=== PATIENT | female | born 1955 | race Caucasian/White ===

== ENCOUNTER → 2016-07-26 | Outpatient (CLI) | payer MEDICARE ==
[~2016-07-26] MED LIST: CEFDINIR300 MG PO; CELLCEPT200 MG/1 M PO; CITALOPRAM HBR20 MG PO; IBUPROFEN600 MG PO; IMMUNOGLOBULIN; IPRATROPIUM; IRON325 M1 PO; MESTINON TAB 6060 MG PO; NEURONTIN 300300 MG PO; PREDNISONE20 MG PO; PROTONIX 40 MG40 M1 PO; SINGULAIR10 MG PO; TOPROL XL 25 MG25 MG PO; VITAMIN D250000 UNIT PO; ZOFRAN4 MG PO
== END ==
LOC: MAMO 07-25 14:40
DX: Z12.31 Encounter for screening mammogram for malignant neoplasm of breast (principal); Z90.710 Acquired absence of both cervix and uterus
CPT/HCPCS: G0202

== ENCOUNTER → 2016-08-16 | Outpatient (CLI) | payer MEDICARE ==
[2016-08-16 09:35] LABS: HEMOGLOBIN 11.7 gm/dl (12.3-15.3); RED BLOOD COUNT 4.1 M/UL (4.00-5.10)
[2016-08-16 09:52] LABS: BUN/CREATININE RATIO 30 (0-10)
== END ==
LOC: OPSV 07:59 → CT 07:59
PROVIDERS: Nurse Practitioner Family
DX: Z45.89 Encounter for adjustment and management of other implanted devices (principal); M25.50 Pain in unspecified joint; D64.9 Anemia, unspecified; I10 Essential (primary) hypertension; K21.9 Gastro-esophageal reflux disease without esophagitis; F32.9 Major depressive disorder, single episode, unspecified; E11.9 Type 2 diabetes mellitus without complications; E78.5 Hyperlipidemia, unspecified; M25.774 Osteophyte, right foot; M67.471 Ganglion, right ankle and foot; S92.344D Nondisplaced fracture of fourth metatarsal bone, right foot, subsequent encounter for fracture with routine healing; Z86.19 Personal history of other infectious and parasitic diseases; R53.83 Other fatigue; E55.9 Vitamin D deficiency, unspecified; R25.2 Cramp and spasm
CPT/HCPCS: 36591; 73700; 80053; 80061; 80076; 82248; 83735; 84439; 84443; 84550; 84630; 85025; 87521; J1642

== ENCOUNTER → 2016-09-08 | Outpatient (CLI) | payer MEDICARE | LOC: EXRD 11:20 | DX: R06.00 Dyspnea, unspecified (principal); R09.89 Other specified symptoms and signs involving the circulatory and respiratory systems; J98.4 Other disorders of lung | CPT/HCPCS: 71020 ==

== ENCOUNTER → 2016-09-12 | Outpatient (CLI) | payer MEDICARE, OTHER | LOC: OPSV 11:11 → LAB 11:11 | DX: M13.0 Polyarthritis, unspecified (principal); G47.00 Insomnia, unspecified | CPT/HCPCS: 36591; 82550; 84550; 86039; 86140; 86431; J1642 ==

== ENCOUNTER → 2016-09-18 | Outpatient (CLI) | payer MEDICARE, OTHER | LOC: KOH-I 11:47 | DX: M79.603 Pain in arm, unspecified (principal); F17.210 Nicotine dependence, cigarettes, uncomplicated | CPT/HCPCS: 73200 ==

== ENCOUNTER 2016-10-22 14:44 | Inpatient (IN) | payer MEDICARE, OTHER ==
[~2016-10-22] VITALS: Ht 167.6 cm; Wt 71.2 kg
[2016-10-22 16:14] LABS: HEMOGLOBIN 13.1 gm/dl (12.3-15.3); RED BLOOD COUNT 4.53 M/UL (4.00-5.10); WHITE BLOOD COUNT 14.2 K/UL (4.5-11.0)
[2016-10-22] MEDS ORDERED: CITALOPRAM HBR20 MG PO (19:41)
[2016-10-22] MEDS ORDERED: VITAMIN D250000 UNIT PO (19:43)
[2016-10-22] MEDS ORDERED: IRON325 M1 PO (19:44)
[2016-10-22] MEDS ORDERED: IBUPROFEN600 MG PO (19:45)
[2016-10-22] MEDS ORDERED: NEURONTIN 300300 MG PO (19:45)
[2016-10-22] MEDS ORDERED: IMMUNOGLOBULIN (19:47)
[2016-10-22] MEDS ORDERED: IPRATROPIUM (19:48)
[2016-10-22] MEDS ORDERED: TOPROL XL 25 MG25 MG PO (19:49)
[2016-10-22] MEDS ORDERED: ZOFRAN4 MG PO (19:50)
[2016-10-22] MEDS ORDERED: CELLCEPT200 MG/1 M PO (19:50)
[2016-10-22] MEDS ORDERED: PREDNISONE20 MG PO (19:51)
[2016-10-22] MEDS ORDERED: PROTONIX 40 MG40 M1 PO (19:51)
[2016-10-22] MEDS ORDERED: MESTINON TAB 6060 MG PO (19:52)
[2016-10-23 03:27] LABS: RED BLOOD COUNT 3.74 M/UL (4.00-5.10)
[2016-10-23 03:28] LABS: HEMOGLOBIN 10.8 gm/dl (12.3-15.3)
[2016-10-23 03:36] LABS: BUN/CREATININE RATIO 30 (0-10)
[2016-10-24 03:18] LABS: RED BLOOD COUNT 3.44 M/UL (4.00-5.10)
[2016-10-24 03:53] LABS: BUN/CREATININE RATIO 15 (0-10)
[2016-10-24] MEDS ORDERED: SINGULAIR10 MG PO (12:16)
[2016-10-24] MEDS ORDERED: CEFDINIR300 MG PO (12:28)
== END 2016-10-24 15:10 | disposition home or self-care (01) | DRG 871 ==
LOC: ER1 14:44 → ZEROF 19:31 → CCU 19:31
PROVIDERS: Emergency Medicine; ADMIT Internal Medicine
DX: A41.9 Sepsis, unspecified organism (principal); J18.9 Pneumonia, unspecified organism; N17.9 Acute kidney failure, unspecified; E87.2 Acidosis; G89.29 Other chronic pain; E11.51 Type 2 diabetes mellitus with diabetic peripheral angiopathy without gangrene; E86.9 Volume depletion, unspecified; K76.0 Fatty (change of) liver, not elsewhere classified; B19.20 Unspecified viral hepatitis C without hepatic coma; D69.6 Thrombocytopenia, unspecified; M19.90 Unspecified osteoarthritis, unspecified site; Z72.0 Tobacco use; G70.00 Myasthenia gravis without (acute) exacerbation; D64.9 Anemia, unspecified; R10.9 Unspecified abdominal pain; E83.42 Hypomagnesemia; Z88.1 Allergy status to other antibiotic agents; Z88.2 Allergy status to sulfonamides; Z79.52 Long term (current) use of systemic steroids; Z95.0 Presence of cardiac pacemaker; E87.6 Hypokalemia; Y95 Nosocomial condition; Z79.899 Other long term (current) drug therapy
CPT/HCPCS: 36415; 36600; 71010; 71020; 80053; 80307; 81001; 82009; 82150; 82550; 82553; 82803; 82962; 83036; 83605; 83690; 83735; 84132; 84439; 84443; 84484; 85025; 85610; 87040; 87086; 93005; 93925; 94640; 94664; 96365; 96375; 99285; C9113; J1335; J1720; J2270; J2405; J2543; J3370; J7030; J7040; J7050

== ENCOUNTER → 2017-01-26 | Outpatient (CLI) | payer MEDICARE ==
[2017-01-26 09:58] LABS: HEMOGLOBIN 13.1 gm/dl (12.3-15.3); RED BLOOD COUNT 4.6 M/UL (4.00-5.10); WHITE BLOOD COUNT 8.5 K/UL (4.5-11.0)
[2017-01-26 10:26] LABS: BUN/CREATININE RATIO 34 (0-10)
== END ==
LOC: LAB 08:52
PROVIDERS: Nurse Practitioner Family
DX: E78.5 Hyperlipidemia, unspecified (principal); I10 Essential (primary) hypertension; E11.9 Type 2 diabetes mellitus without complications; D64.9 Anemia, unspecified; E55.9 Vitamin D deficiency, unspecified; R10.84 Generalized abdominal pain; R25.2 Cramp and spasm; K21.9 Gastro-esophageal reflux disease without esophagitis; M25.50 Pain in unspecified joint; R30.0 Dysuria; F32.9 Major depressive disorder, single episode, unspecified
CPT/HCPCS: 36415; 80053; 80061; 82043; 82570; 82607; 82728; 83036; 83735; 84439; 84443; 84550; 85025

== ENCOUNTER → 2020-05-31 | Outpatient (CLI) | payer MEDICARE, SELFPAY ==
[~2020-05-31] MED LIST changes: +ACID REDUCER 1150 MG PO; +ACYCLOVIR400 MG PO; +ALBUTEROL1.25 MG/3 INH; +ALBUTEROL2.5 MG/3 M INH; +ALDACTONE25 MG PO; +AZELASTINE SPRAY; +AZITHROMYCIN250 MG PO; +BACTROBAN OINT22 GM TOP; +BIOTIN2500 MCG PO; -CELLCEPT200 MG/1 M PO; +CELLCEPT250 MG PO; -CITALOPRAM HBR20 MG PO; +CITALOPRAM HBR40 MG PO; +CLARITIN10 MG PO; +CLOTRIMAZOLE-745 GM TOP; +COREG 3.125M3.125 MG PO; +DECADRON6 MG PO; +DICLOFENAC SOD100 GM TOP; +DIFLUCAN200 MG PO; +DOXYCYCLINE MO100 MG PO; +ECOTRIN81 MG PO; +ELIQUIS2.5 MG PO; +ELIQUIS5 MG PO; +FEOSOL325 MG PO; +FERROUS GLUCON324 M1 PO; +FLONASE 0.05% N16 GM; +FLUTICASONE SPRAY; +GAMUNEX-C20 GM/200 INJ; +GAMUNEX-C20 GM/200 IV; +GLUCOPHAGE500 MG PO; +HYDROCODON-ACE1 EAC2 PO; +IBU600 MG PO; +IPRATROPIUM BRO15 ML; -IRON325 M1 PO; +K-DUR TAB 20 M20 MEQ PO; +LASIX40 MG PO; +LEVAQUIN500 MG PO; +LORTAB 7.5-3251 EACH PO; +MESTINON60 MG PO; +MOVANTIK25 MG PO; +MUCINEX DM ER1 EAC1 PO; +MUCINEX600 MG PO; +NEURONTIN100 MG PO; +NITROGLYCERIN0.4 MG SL; +NORCO 7.5-3251 EACH PO; +OMNICEF 300 MG300 MG PO; +ONDANSETRON ODT4 MG SL; +PEPCID40 MG PO; +PERCOCET 10-321 EACH PO; +PERCOCET 5/325 T1 EA PO; +PLAVIX 75 MG TA75 MG PO; +PREDNISONE10 MG PO; +PROAIR HFA8.5 GM INH; +RESTASIS 0.05%1 EACH EYEBOTH; +TOPIRAMATE25 MG PO; +TYLENOL 325MG325 MG PO; +TYLENOL 500 MG500 MG PO; +VITAMIN B12 1000MCG SL; +VITAMIN B12-FO1 EACH PO; +VITAMIN D21250 MCG PO; +VITAMIN D35000 UNI1 PO; +VOLTAREN100 GM TOP; +XYZAL5 MG PO; +ZINC SULFATE220 M1 PO; +ZOFRAN ODT 4 MG4 MG PO; +ZOVIRAX 200 MG200 MG PO
== END ==
LOC: KOH-I 10:20
DX: Z12.2 Encounter for screening for malignant neoplasm of respiratory organs (principal); F17.210 Nicotine dependence, cigarettes, uncomplicated; R10.9 Unspecified abdominal pain; G89.29 Other chronic pain; M51.16 Intervertebral disc disorders with radiculopathy, lumbar region; R26.81 Unsteadiness on feet
CPT/HCPCS: 71271; 72131

== ENCOUNTER → 2020-06-08 | Outpatient (CLI) | payer MEDICARE, OTHER | LOC: MAMO 11:00 | DX: Z12.31 Encounter for screening mammogram for malignant neoplasm of breast (principal) | CPT/HCPCS: 77063; 77067 ==

== ENCOUNTER → 2020-07-29 | Outpatient (CLI) | payer MEDICARE, SELFPAY | LOC: EXRD 10:55 | DX: R10.32 Left lower quadrant pain (principal) | CPT/HCPCS: 73502 ==

== ENCOUNTER → 2020-09-21 | Outpatient (CLI) | payer MEDICARE, SELFPAY ==
[2020-09-21 11:30] LABS: HEMOGLOBIN 13.4 gm/dl (12.3-15.3); RED BLOOD COUNT 4.44 M/UL (4.00-5.10); WHITE BLOOD COUNT 5.6 K/UL (4.5-11.0)
[2020-09-21 11:49] LABS: BUN/CREATININE RATIO 20 (0-10)
== END ==
LOC: OPSV2 09-17 10:30
PROVIDERS: Anesthesiology
DX: Z01.818 Encounter for other preprocedural examination (principal); K40.90 Unilateral inguinal hernia, without obstruction or gangrene, not specified as recurrent
CPT/HCPCS: 36415; 80048; 85025; 93005

== ENCOUNTER → 2020-09-23 | Day surgery (SDC) | payer MEDICARE, SELFPAY | END | disposition home or self-care (01) | LOC: OR 06:51 | DX: K40.90 Unilateral inguinal hernia, without obstruction or gangrene, not specified as recurrent (principal); I25.119 Atherosclerotic heart disease of native coronary artery with unspecified angina pectoris; I11.0 Hypertensive heart disease with heart failure; I50.9 Heart failure, unspecified; I48.91 Unspecified atrial fibrillation; E78.5 Hyperlipidemia, unspecified; I82.409 Acute embolism and thrombosis of unspecified deep veins of unspecified lower extremity; D64.9 Anemia, unspecified; I25.2 Old myocardial infarction; E11.65 Type 2 diabetes mellitus with hyperglycemia; K21.9 Gastro-esophageal reflux disease without esophagitis; Z88.2 Allergy status to sulfonamides; Z88.1 Allergy status to other antibiotic agents; Z79.82 Long term (current) use of aspirin; Z82.49 Family history of ischemic heart disease and other diseases of the circulatory system; Z83.3 Family history of diabetes mellitus; Z95.1 Presence of aortocoronary bypass graft; Z79.4 Long term (current) use of insulin | CPT/HCPCS: C1781; J0690; J1100; J2001; J2370; J2405; J2704; J3010; J3370; J7030; J7120 ==

== ENCOUNTER → 2020-11-12 | Outpatient (CLI) | payer MEDICARE, OTHER | LOC: CT 10-26 14:00 | DX: H54.7 Unspecified visual loss (principal); H49.20 Sixth [abducent] nerve palsy, unspecified eye | CPT/HCPCS: 36415; 70470; 70482; 82565; Q9967 ==

== ENCOUNTER → 2021-03-01 | Outpatient (CLI) | payer MEDICARE | LOC: LAB 15:52 | DX: M51.36 Other intervertebral disc degeneration, lumbar region (principal) | CPT/HCPCS: 36415 ==

== ENCOUNTER → 2021-06-29 | Outpatient (CLI) | payer MEDICARE, OTHER ==
[2021-06-29 10:26] LABS: HEMOGLOBIN 12.4 gm/dl (12.3-15.3); RED BLOOD COUNT 4.2 M/UL (4.00-5.10); WHITE BLOOD COUNT 3.6 K/UL (4.5-11.0)
[2021-06-30 08:15] LABS: ESTIM. AVG GLU (EAG) 123 mg/dL (.); HEMOGLOBIN A1C 5.9 % (4.8-5.6)
[2021-06-30 09:15] LABS: A/G RATIO 1.9 (1.2-2.2); ALKALINE PHOSPHATASE, S 60 IU/L (44-121); ALT (SGPT) 16 IU/L (0-32); AST (SGOT) 25 IU/L (0-40); BILIRUBIN, TOTAL 0.4 mg/dL (0.0-1.2); BUN 14 mg/dL (8-27); BUN/CREATININE RATIO 20 (12-28); CALCIUM, SERUM 9.5 mg/dL (8.7-10.3); CARBON DIOXIDE, TOTAL 24 mmol/L (20-29); CHLORIDE, SERUM 99 mmol/L (96-106); CHOLESTEROL, TOTAL 155 mg/dL (100-199); CREATININE, SERUM 0.69 mg/dL (0.57-1.00); EGFR IF AFRICN AM 106 (>59); EGFR IF NONAFRICN AM 92 (>59); GLOBULIN, TOTAL 2.6 g/dL (1.5-4.5); GLUCOSE, SERUM 95 mg/dL (65-99); HDL CHOLESTEROL 46 mg/dL (>39); LDL CHOLESTEROL CALC 85 mg/dL (0-99); LDL/HDL RATIO 1.8 ratio (0.0-3.2); POTASSIUM, SERUM 4.1 mmol/L (3.5-5.2); PROTEIN, TOTAL, SERUM 7.5 g/dL (6.0-8.5); SODIUM, SERUM 141 mmol/L (134-144); T. CHOL/HDL RATIO 3.4 ratio (0.0-4.4); TRIGLYCERIDES 139 mg/dL (0-149)
[2021-06-30 11:15] LABS: CREATININE, URINE 54.3 mg/dL (Not Estab.); MICROALB/CREAT RATIO <6 (0-29)
[2021-07-01 05:10] LABS: VITAMIN D, 25-HYDROXY 68.2 ng/mL (30.0-100.0)
== END ==
LOC: MAMO 06-17 09:00
PROVIDERS: Nurse Practitioner Family
DX: Z12.31 Encounter for screening mammogram for malignant neoplasm of breast (principal); Z01.84 Encounter for antibody response examination; R93.89 Abnormal findings on diagnostic imaging of other specified body structures; R39.11 Hesitancy of micturition; E11.9 Type 2 diabetes mellitus without complications; R10.84 Generalized abdominal pain; I71.4 Abdominal aortic aneurysm, without rupture; M25.50 Pain in unspecified joint; I10 Essential (primary) hypertension; I70.209 Unspecified atherosclerosis of native arteries of extremities, unspecified extremity; D64.9 Anemia, unspecified; R20.2 Paresthesia of skin; R26.81 Unsteadiness on feet; E55.9 Vitamin D deficiency, unspecified; Z20.822 Contact with and (suspected) exposure to COVID-19
CPT/HCPCS: 36415; 77063; 77067; 80053; 80061; 81001; 82043; 82570; 82607; 83036; 84439; 84443; 85025

== ENCOUNTER → 2021-07-22 | Outpatient (CLI) | payer MEDICARE | LOC: KOH-I 07-12 14:30 | DX: F17.210 Nicotine dependence, cigarettes, uncomplicated (principal) | CPT/HCPCS: 71271 ==

== ENCOUNTER → 2021-08-04 | Outpatient (CLI) | payer MEDICARE | LOC: RAD 12:02 | DX: R31.9 Hematuria, unspecified (principal) | CPT/HCPCS: 74018 ==

== ENCOUNTER → 2021-09-08 | Outpatient (CLI) | payer MEDICARE | LOC: HEART 5 13:29 | DX: I25.10 Atherosclerotic heart disease of native coronary artery without angina pectoris (principal); R11.10 Vomiting, unspecified; I07.1 Rheumatic tricuspid insufficiency; Z95.0 Presence of cardiac pacemaker | CPT/HCPCS: 93306 ==

== ENCOUNTER → 2021-09-26 | Outpatient (CLI) | payer MEDICARE | LOC: RAD 08-09 08:30 | DX: M25.552 Pain in left hip (principal); R10.84 Generalized abdominal pain; R13.10 Dysphagia, unspecified; K44.9 Diaphragmatic hernia without obstruction or gangrene | CPT/HCPCS: 73502; 74221 ==

== ENCOUNTER → 2021-09-28 | Outpatient (CLI) | payer MEDICARE ==
[~2021-09-28] VITALS: Ht 160 cm; Wt 66.7 kg
== END ==
LOC: OPSV 10:00
DX: G70.00 Myasthenia gravis without (acute) exacerbation (principal)
CPT/HCPCS: 96365; C9399; J1200; J1642

== ENCOUNTER → 2021-10-05 | Outpatient (CLI) | payer MEDICARE ==
[~2021-10-05] VITALS: Ht 160 cm; Wt 66.7 kg
== END ==
LOC: OPSV 09:55
DX: Z45.2 Encounter for adjustment and management of vascular access device (principal); G70.00 Myasthenia gravis without (acute) exacerbation
CPT/HCPCS: 96523; C9399; J1642

== ENCOUNTER → 2021-10-06 | Outpatient (CLI) | payer MEDICARE ==
[~2021-10-06] VITALS: Ht 160 cm; Wt 66.7 kg
== END ==
LOC: OPSV 14:00
DX: G70.00 Myasthenia gravis without (acute) exacerbation (principal); Z45.2 Encounter for adjustment and management of vascular access device
CPT/HCPCS: 96365; 96375; C9399; J1200; J1642

== ENCOUNTER → 2021-10-13 | Outpatient (CLI) | payer MEDICARE ==
[~2021-10-13] VITALS: Ht 160 cm; Wt 66.7 kg
== END | disposition left against medical advice (07) ==
LOC: OPSV 10-12 10:00
DX: G70.00 Myasthenia gravis without (acute) exacerbation (principal); Z45.2 Encounter for adjustment and management of vascular access device
CPT/HCPCS: 96365; 96375; C9399; J1200; J1642

== ENCOUNTER → 2021-10-20 | Outpatient (CLI) | payer MEDICARE, MEDICAID ==
[~2021-10-20] VITALS: Ht 160 cm; Wt 66.7 kg
== END ==
LOC: OPSV 10-19 10:00
DX: G70.00 Myasthenia gravis without (acute) exacerbation (principal)
CPT/HCPCS: 96365; 96375; C9399; J1200; J1642

== ENCOUNTER → 2021-11-30 | Outpatient (CLI) | payer MEDICARE ==
[2021-11-30 09:55] LABS: HEMOGLOBIN 12.9 gm/dl (12.3-15.3); RED BLOOD COUNT 4.3 M/UL (4.00-5.10); WHITE BLOOD COUNT 3.8 K/UL (4.5-11.0)
[2021-11-30 10:11] LABS: BUN/CREATININE RATIO 27 (0-10)
[2021-12-01 09:14] LABS: CREATININE, URINE 55.8 mg/dL (Not Estab.); MICROALB/CREAT RATIO <5 (0-29)
== END ==
LOC: LAB 09:11
PROVIDERS: Nurse Practitioner Family
DX: E11.65 Type 2 diabetes mellitus with hyperglycemia (principal); I25.10 Atherosclerotic heart disease of native coronary artery without angina pectoris; R10.84 Generalized abdominal pain; M54.9 Dorsalgia, unspecified; I11.0 Hypertensive heart disease with heart failure; I50.42 Chronic combined systolic (congestive) and diastolic (congestive) heart failure; R20.2 Paresthesia of skin; E78.5 Hyperlipidemia, unspecified; I70.209 Unspecified atherosclerosis of native arteries of extremities, unspecified extremity; I48.91 Unspecified atrial fibrillation; E55.9 Vitamin D deficiency, unspecified; E53.8 Deficiency of other specified B group vitamins; R53.83 Other fatigue; R06.02 Shortness of breath; R60.0 Localized edema; Z00.00 Encounter for general adult medical examination without abnormal findings
CPT/HCPCS: 36415; 80053; 80061; 81001; 82043; 82570; 82607; 83036; 83880; 84439; 84443; 85025

== ENCOUNTER → 2022-01-05 | Outpatient (CLI) | payer MEDICARE ==
[~2022-01-05] VITALS: Ht 160 cm; Wt 66.7 kg
== END ==
LOC: OPSV 10:00
DX: G70.00 Myasthenia gravis without (acute) exacerbation (principal); Z98.890 Other specified postprocedural states
CPT/HCPCS: 96365; J1200; J1642; J9332

== ENCOUNTER → 2022-01-12 | Outpatient (CLI) | payer MEDICARE ==
[~2022-01-12] VITALS: Ht 160 cm; Wt 66.7 kg
== END ==
LOC: OPSV 09:47
DX: G70.00 Myasthenia gravis without (acute) exacerbation (principal)
CPT/HCPCS: 96365; 96375; J1200; J1642; J9332

== ENCOUNTER → 2022-01-20 | Outpatient (CLI) | payer MEDICARE ==
[~2022-01-20] VITALS: Ht 160 cm; Wt 66.7 kg
== END ==
LOC: OPSV 01-19 10:00
DX: G70.00 Myasthenia gravis without (acute) exacerbation (principal)
CPT/HCPCS: 96365; 96375; J1200; J1642; J9332

== ENCOUNTER → 2022-01-27 | Outpatient (CLI) | payer MEDICARE ==
[~2022-01-27] VITALS: Ht 160 cm; Wt 66.7 kg
== END ==
LOC: OPSV 01-26 10:00
DX: G70.00 Myasthenia gravis without (acute) exacerbation (principal); Z98.890 Other specified postprocedural states
CPT/HCPCS: 96365; 96375; J1200; J1642; J9332